=== PATIENT | male | born 1970 ===

== ENCOUNTER 2018-02-01 20:31 | Emergency (ER) | payer OTHER ==
[2018-02-01 20:32] VITALS: BMI 32.5
[2018-02-01 20:34] VITALS: RESP 18
--- NOTE | 2018-02-01 21:03 | ED PDOC ---
Arrival/HPI <Emanuel Diaz - Last Filed: 02/01/18 21:27> - General Historian: Patient - History of Present Illness Time/Duration: > week Symptom Onset: Gradual Symptom Course: Unchanged Quality: Aching Severity Level: 9 Activities at Onset: Rest Context: Home <Joshua Steele - Last Filed: 02/02/18 00:15> - General Chief Complaint: Dizziness/Lightheaded Time Seen by Provider: 02/01/18 20:37 - History of Present Illness Narrative History of Present Illness (Text): 02/01/18 20:58 Patient is a 47 M with history of hypertension, depression, anxiety who presents with 1 week duration of headache, shortness of breath, dizziness, fevers, chills, nausea. Patient states the symptoms began the night of January 24 and have been constant since. Patient states the headache is located in his forehead and radiated to his neck. States is constant in duration, rating it a 8 /10, associated with nausea, photophobia and phonophobia. Endorses no relieving factors after trying excedrin. Denies abdominal pain, vomiting, cough, body aches, rhinorrhea, tearing. (Joshua Steele) Past Medical History - Provider Review Nursing Documentation Reviewed: Yes - Infectious Disease Hx of Infectious Diseases: None - Cardiac Hx Hypertension: Yes - Psychiatric Hx Anxiety: Yes Hx Substance Use: No Other/Comment: Insmonia - Surgical History Hx Orthopedic Surgery: Yes (r knee acl) - Anesthesia Hx Anesthesia: Yes Hx Anesthesia Reactions: No Hx Malignant Hyperthermia: No <Joshua Steele - Last Filed: 02/02/18 00:15> Family/Social History Family/Social History: Diabetes, Hypertension Smoking Status: Never Smoked Hx Alcohol Use: Yes Frequency of alcohol use: Socially Hx Substance Use: No <Joshua Steele - Last Filed: 02/02/18 00:15> Allergies/Home Meds <Emanuel Diaz - Last Filed: 02/01/18 21:27> <Joshua Steele - Last Filed: 02/02/18 00:15> Allergies/Adverse Reactions: Allergies No Known Allergies Allergy (Verified 02/01/18 20:32) Home Medications: Home Meds Medication Instructions Recorded Confirmed Lorazepam [Ativan] 1 tab PO BID 02/01/18 02/01/18 Losartan [Cozaar] 1 tab PO DAILY 02/01/18 02/01/18 Sertraline [Zoloft] 1 tab PO DAILY 02/01/18 02/01/18 amLODIPine [Norvasc] 1 tab PO DAILY 02/01/18 02/01/18 hydroCHLOROthiazide [Hydrodiuril] 1 tab PO DAILY 02/01/18 02/01/18 Review of Systems - Review of Systems Constitutional: Fatigue, Fevers Eyes: Photophobia Respiratory: SOB. absent: Cough Cardiovascular: absent: Chest Pain, Palpitations Gastrointestinal: Nausea. absent: Abdominal Pain, Vomiting Genitourinary Male: absent: Dysuria Neurological: Headache, Dizziness Psychiatric: Anxiety <Joshua Steele - Last Filed: 02/02/18 00:15> Physical Exam Vital Signs Reviewed: Yes Temperature: Afebrile Blood Pressure: Normal Pulse: Regular Respiratory Rate: Normal Appearance: Positive for: Well-Appearing, Comfortable Pain Distress: Moderate Mental Status: Positive for: Alert and Oriented X 3 - Systems Exam Head: Present: Atraumatic, Normocephalic Pupils: Present: PERRL Extroacular Muscles: Present: EOMI Conjunctiva: Present: Normal Mouth: Present: Moist Mucous Membranes Respiratory/Chest: Present: Clear to Auscultation, Good Air Exchange. No: Accessory Muscle Use Cardiovascular: Present: Regular Rate and Rhythm, Normal S1, S2. No: Murmurs Abdomen: No: Tenderness, Distention Upper Extremity: Present: Normal Inspection. No: Cyanosis, Edema Lower Extremity: Present: Normal Inspection. No: Edema Neurological: Present: GCS=15, CN II-XII Intact, Speech Normal Skin: No: Warm, Normal Color Psychiatric: Present: Alert, Oriented x 3, Normal Insight, Normal Concentration <Joshua Steele - Last Filed: 02/02/18 00:15> Vital Signs Temp Pulse Resp BP Pulse Ox 02/01/18 20:31 98.4 F 97 H 18 123/88 95 Medical Decision Making <Emanuel Diaz - Last Filed: 02/01/18 21:27> Re-evaluation Time: 20:20 Reassessment Condition: Re-examined - Lab Interpretations I have reviewed the lab results: Yes Interpretation: All labs normal <Joshua Steele - Last Filed: 02/02/18 00:15> ED Course and Treatment: Patient Seen With Resident: In agreement with resident note which contains more details about the patient. Patient was seen and evaluated with resident. Came up with plan and treatment together. A 47 year old male with headache, shortness of breath, dizziness, fever, chills , nausea. Additional HPI as noted by resident. Unremarkable physical exam. Ordered CT head and labs, will give patient Reglan. (Emanuel Diaz) Patient re-assessed 30 mins after giving reglan, states symptoms are resolving. Currently awaiting CT head. 02/01/18 22:38 CT head negative, symptoms completely resolved patient able to now tolerate light in the room, patient will be discharged and instructed to follow up with his PMD. (Joshua Steele) - Lab Interpretations Lab Results: 02/01/18 22:05 02/01/18 22:05 Lab Results 02/01/18 22:05: Sodium 147, Potassium 3.4 L, Chloride 105, Carbon Dioxide 28, Anion Gap 18, BUN 21, Creatinine 0.9, Est GFR ( Amer) > 60, Est GFR (Non- Af Amer) > 60, Random Glucose 94, Calcium 9.7 02/01/18 22:05: WBC 6.4, RBC 5.70, Hgb 15.9, Hct 46.0, MCV 80.7, MCH 27.9, MCHC 34.6, RDW 13.6, Plt Count 245, MPV 10.7, Gran % 60.9, Lymph % (Auto) 27.9, Graves % (Auto) 8.2 H, Eos % (Auto) 2.7, Baso % (Auto) 0.3, Gran # 3.89, Lymph # (Auto ) 1.8, Graves # (Auto) 0.5, Eos # (Auto) 0.2, Baso # (Auto) 0.02 - RAD Interpretation Radiology Orders: 02/01/18 20:57 HEAD W/O CONTRAST [CT] Stat - Medication Orders Current Medication Orders: Discontinued Medications Metoclopramide HCl (Reglan) 10 mg IVP STAT STA Stop: 02/01/18 20:58 Last Admin: 02/01/18 21:37 Dose: 10 mg IVP Administration Document 02/01/18 21:37 LA (Rec: 02/01/18 21:37 LA [id number]) Charges for Administration # of IVP Administrations 1 Potassium Chloride (K-Dur 20 Meq Er Tab) 40 meq PO STAT STA Stop: 02/01/18 22:38 Last Admin: 02/01/18 22:48 Dose: 40 meq - Scribe Statement The provider has reviewed the documentation as recorded by the Scribe <Emanuel Diaz - Last Filed: 02/01/18 21:27> <Joshua Steele - Last Filed: 02/02/18 00:15> - Scribe Statement [place] Provider Scribe Attestation: All medical record entries made by the Scribe were at my direction and personally dictated by me. I have reviewed the chart and agree that the record accurately reflects my personal performance of the history, physical exam, medical decision making, and the department course for this patient. I have also personally directed, reviewed, and agree with the discharge instructions and disposition. (Emanuel Diaz) Disposition/Present on Arrival <Emanuel Diaz - Last Filed: 02/01/18 21:27> - Present on Arrival Any Indicators Present on Arrival: No History of DVT/PE: No History of Uncontrolled Diabetes: No Urinary Catheter: No History of Decub. Ulcer: No History Surgical Site Infection Following: None - Disposition Have Diagnosis and Disposition been Completed?: Yes Disposition Time: 23:58 Patient Plan: Discharge <Joshua Steele - Last Filed: 02/02/18 00:15> - Disposition Diagnosis: Migraine Disposition: HOME/ ROUTINE Patient Problems: Current Active Problems Problem Status Onset Migraine Acute Condition: IMPROVED Discharge Instructions (ExitCare): Migraine Headache (DC) Additional Instructions: Mr. Goodwin, thank you for letting us take care of you today. You were treated for your migraine headache. The emergency medical care you received today was directed at your acute symptoms. If you were prescribed any medication, please fill it and take as directed. It may take several days for your symptoms to resolve. Return to the Emergency Department if your symptoms worsen, do not improve, or if you have any other problems. Please contact your doctor or call one of the physicians/clinics you have been referred to that are listed on the Patient Visit Information form that is included in your discharge packet. Bring any paperwork you were given at discharge with you along with any medications you are taking to your follow up visit. Our treatment cannot replace ongoing medical care by a primary care provider (PCP) outside of the emergency department. Thank you for allowing the [facility] team to be part of your care today. If you had an X-Ray or CT scan: A Radiologist will review the ED reading if any change in treatment is needed we will contact you. If you had a blood, urine, or wound culture: It will take several days for the results, if any change in treatment is needed we will contact you. If you had an STI test: It will take 48 hours for the results. Please call after 1 week if you have not heard back. Forms: [employer] ([place])
[2018-02-01 22:21] LABS: BASO # 0.02 K/mm3 (0.0-2.0); BASO % 0.3 % (0.0-3.0); BLOOD UREA NITROGEN 21 mg/dL (7-21); CALCIUM 9.7 mg/dL (8.4-10.5); EOS # 0.2 (0.0-0.7); EOS % 2.7 % (1.5-5.0); GFR AFRICAN-AMERICAN > 60; GFR NON-AFRICAN AMERICAN > 60; GRAN # 3.89 (1.4-6.5); GRAN % 60.9 % (50.0-68.0); HEMOGLOBIN 15.9 g/dL (14.0-18.0); LYMPH # 1.8 (1.2-3.4); LYMPH % 27.9 % (22.0-35.0); MEAN CELL VOLUME 80.7 fl (80.0-105.0); MEAN CORPUSCULAR HEMOGLOBIN 27.9 pg (25.0-35.0); MEAN CORPUSCULAR HGB CONC 34.6 g/dl (31.0-37.0); MEAN PLATELET VOLUME 10.7 fl (7.0-11.0); MONO # 0.5 (0.1-0.6); MONO % 8.2 % (1.0-6.0); RBC 5.7 10^6/uL (3.5-6.1); RED CELL DISTRIBUTION WIDTH 13.6 % (11.5-14.5); WHITE BLOOD COUNT 6.4 10^3/ul (4.5-11.0)
[2018-02-01] MEDS ORDERED: Potassium Chloride 20 mEq ER Tab PO STA (22:37)
--- NOTE | 2018-02-01 23:45 | CT ---
EXAM: CT Head Without Intravenous Contrast CLINICAL HISTORY: 47 years old, male; Pain; Headache; Other: High blood pressure; Additional info: Headache w/ dizziness TECHNIQUE: Axial computed tomography images of the head/brain without intravenous contrast. All CT scans at this facility use one or more dose reduction techniques, viz.: automated exposure control; ma/kV adjustment per patient size (including targeted exams where dose is matched to indication; i.e. head); or iterative reconstruction technique. Coronal and sagittal reformatted images were created and reviewed. COMPARISON: No relevant prior studies available. FINDINGS: Brain: Minimal atrophy. No intracranial hemorrhage. No mass. Few scattered subtle foci of decreased attenuation within periventricular/subcortical white matter. No definite edema. Ventricles: No hydrocephalus. Bones/joints: No acute fracture. Soft tissues: Unremarkable. Sinuses: No acute sinusitis. Mastoid air cells: No mastoid effusion. Orbits: Unremarkable as visualized. IMPRESSION: 1. Nonspecific white matter changes. Acute infarction may be CT occult within first 24 hours. If a focal deficit persists, consider followup CT or MRI for further evaluation. 2. Incidental/non-acute findings are described above.
[2018-02-02 00:28] VITALS: BP 128/88; PULSE 63; TEMP 98; O2SAT 99
--- NOTE | 2018-02-02 10:23 | CARD ---
APPROVED REPORT EKG Measurement Heart [id number] <Conclusion> Normal sinus rhythm Small q waves 2,3,F STTW changes c/w ischemia Prolonged QTc
== END 2018-02-02 00:20 | disposition home or self-care (01) ==
LOC: ED 20:31
DX: G43.909 Migraine, unspecified, not intractable, without status migrainosus (principal); I10 Essential (primary) hypertension
CPT/HCPCS: 70450; 80048; 85025; 93005; 96374; 99285; J2765